=== PATIENT | male | born 1970 | race Caucasian/White ===

== ENCOUNTER 2019-11-28 20:10 | Emergency (ER) | payer SELFPAY ==
[~2019-11-28] VITALS: Ht 172.7 cm; Wt 81.8 kg
[2019-11-28 20:17] VITALS: BP 134/67; Ht 172.7 cm; Wt 81.8 kg
[2019-11-28] MEDS ORDERED: NEURONTIN 300300 MG PO (22:42)
[2019-11-28] MEDS ORDERED: ARTHROTEC 501 TAB.EC PO (22:42)
== END 2019-11-28 22:59 | disposition home or self-care (01) ==
LOC: D.ER 20:10
DX: M54.12 Radiculopathy, cervical region (principal); M54.16 Radiculopathy, lumbar region; M54.5 Low back pain; M54.2 Cervicalgia; I10 Essential (primary) hypertension